=== PATIENT | male | born 1970 | race African-American/Black ===

== ENCOUNTER 2023-10-17 13:30 | Emergency (ER) | payer BC ==
[~2023-10-17] VITALS: Ht 193 cm; Wt 118.2 kg
[~2023-10-17 13:30] MED LIST: COZAAR 50MG50 MG/TAB PO; EPITOL; EPITOL PO; NORCO 325 MG-51 TAB PO; NORVASC 10MG10 MG PO; TEGRETOL; TEGRETOL 2200 MG/TAB PO; TEGRETOL X100 MG/TAB PO
[2023-10-17 13:31] VITALS: TEMP 98.7
[2023-10-17] MEDS ORDERED: Ondansetron 4 MG/2 ML VIAL IV ONE (13:45)
[2023-10-17] MEDS ORDERED: LR 1,000 ML IV ONE (13:45)
[2023-10-17 14:13] LABS: BASO % 0.3 % (0.0-2.0); EOS % 0.5 % (0.0-4.0); GRAN % 65.7 % (42.2-75.2); LYMPH # 1.6 K/mm3 (1.2-3.4); LYMPH % 25.9 % (20.0-51.0); MEAN CELL VOLUME 88 fl (80.0-100.0); MEAN CORPUSCULAR HGB CONC 34 g/dl (33.0-37.0); MEAN PLATELET VOLUME 8.9 fl (7.4-10.4); MONO # 0.5 K/mm3 (0.1-0.6); MONO % 7.4 % (1.7-9.3); PLATELET COUNT 219 K/mm3 (130-400); RED BLOOD COUNT 3.05 M/mm3 (4.20-5.60); REDCELL DISTRIBUTION WIDTH-CV 13.2 % (11.5-14.5)
[2023-10-17 14:14] LABS: MEAN CORPUSCULAR HEMOGLOBIN 30 pg (27-31)
[2023-10-17 14:15] LABS: HEMATOCRIT 26.8 % (42.0-52.0)
[2023-10-17 14:26] LABS: BILIRUBIN,TOTAL 0.4 mg/dL (0.2-1.2); C-REACTIVE PROTEIN 0.83 mg/dL (0.00-0.50); CALCIUM 8.4 mg/dL (8.4-10.2); CREATININE, serum 0.94 mg/dL (0.72-1.25); POTASSIUM 3.2 mEq/L (3.5-4.5)
[2023-10-17] MEDS ORDERED: Iohexol 300 - 100 ML VIAL IV ONE (14:34)
[2023-10-17] MEDS ORDERED: NS 100 ML IV ONE (14:45)
[2023-10-17 14:46] LABS: PROLACTIN 24.1 ng/mL (3.46-19.40)
[2023-10-17 16:38] LABS: URINE APPEARANCE CLEAR (CLEAR/HAZY); URINE BLOOD NEGATIVE (NEGATIVE); URINE COLOR YELLOW (YELLOW); URINE GLUCOSE NEGATIVE (NEGATIVE); URINE KETONE NEGATIVE (NEGATIVE); URINE NITRATE NEGATIVE (NEGATIVE); URINE PROTEIN(semi-quant) NEGATIVE (NEGATIVE); URINE UROBILINOGEN 0.2 E.U/dL (0.2-1.0)
[2023-10-17 16:55] LABS: COLLECTION METHOD CLEAN CATCH
[2023-10-17 18:45] VITALS: BP 135/68; PULSE 87
== END 2023-10-17 18:45 | disposition short-term general hospital (02) ==
LOC: COL.ER 13:30
PROVIDERS: Family Medicine
DX: R41.82 Altered mental status, unspecified (principal); Z87.891 Personal history of nicotine dependence
CPT/HCPCS: J2405; J7120; Q9967